=== PATIENT | female | born 1970 | race Caucasian/White ===

== ENCOUNTER 2016-11-15 16:42 | Emergency (ER) | payer OTHER ==
[~2016-11-15] VITALS: Ht 157.5 cm; Wt 80.0 kg
[2016-11-15 17:35] LABS: EOSINOPHIL (%) 0.4 % (0-5); HEMATOCRIT 34.9 % (36.0-46.0); IMMATURE GRANULOCYTE (%) 0.2 % (0.0-0.7); IMMATURE GRANULOCYTE COUNT 0.2 K/uL; LYMPHOCYTE COUNT 2.1 K/uL (1.0-2.8); MCH 25.2 PG (29.0-34.0); MCHC 32.1 G/DL (30.0-36.0); MCV 78.4 FL (83-99); MEAN PLAT.VOLUME 10.7 uM^3 (9.5-12.4); MONOCYTE (%) 10.8 % (3-12); NEUTROPHIL COUNT 6.2 K/uL (1.8-6.4); PLATELET COUNT 342 K/uL (156-360); RBC DIS.WIDTH-CV 14.8 % (11.8-14.6); RBC DIS.WIDTH-SD 40.9 % (39-53); RED BLOOD COUNT 4.45 M/uL (3.80-5.20); WHITE BLOOD COUNT 9.4 K/uL (4.1-10.2)
[2016-11-15 17:45] LABS: CHLORIDE 107 mEq/L (99-109); SODIUM 141 mEq/L (136-147)
[2016-11-15 17:47] LABS: GLUCOSE 96 mg/dL (70-99)
[2016-11-15 17:48] LABS: ANION GAP 9 MEQ/L (2-14)
[2016-11-15 17:49] LABS: TOTAL BILIRUBIN 0.2 mg/dL (0.0-1.0)
[2016-11-15 17:51] LABS: ALKALINE PHOSPHATASE 57 IU/L (3-129)
[2016-11-15 17:52] LABS: UREA NITROGEN (BUN) 7 mg/dL (9-23)
[2016-11-15 17:54] LABS: GFR ESTIMATE (CALCULATED) > 59 mL/min/
[2016-11-15 17:57] LABS: TROP-I INTERPRETATION NEGATIVE; TROPONIN-I < 0.01 ng/mL (0.0-0.30)
[2016-11-15] MEDS ORDERED: FIORICET,ESG1 TABLET PO (19:50)
[2016-11-15 21:12] LABS: TROP-I INTERPRETATION NEGATIVE; TROPONIN-I < 0.01 ng/mL (0.0-0.30)
[2016-11-15 21:52] VITALS: BP 124/69
== END 2016-11-15 21:52 | disposition home or self-care (01) ==
LOC: EXP 16:42 → EME 16:42 → EXP 21:52
PROVIDERS: Physician Assistant
DX: R07.89 Other chest pain (principal); Z82.49 Family history of ischemic heart disease and other diseases of the circulatory system
CPT/HCPCS: 71010; 80053; 84484; 85025; 93005; 99281; 99284